=== PATIENT | female | born 1985 | race African-American/Black ===

== ENCOUNTER 2016-05-25 10:17 | Emergency (ER) | payer SELFPAY ==
[~2016-05-25] VITALS: Ht 149.9 cm; Wt 60.0 kg
[2016-05-25 10:20] VITALS: BP 142/66; PULSE 75; RESP 16; TEMP 98; O2SAT 98
--- NOTE | 2016-05-25 10:27 | PD ---
HPI . think sand got into her eyes Chief Complaint: Eye Problems/Injury Time Seen by Provider: 10:27 Travel History International Travel<30 days: No Contact w/Intl Traveler<30days: No Traveled to known affect area: No History of Present Illness HPI 31-year-old female with history of anemia here with complaints of bilateral eye pain. Patient says that she went to the beach yesterday and thinks sand may have gotten into her eyes. She said this morning she woke up and there was a slight discharge over her eyes she feels as though there is still sand remaining inside. She denies any visual changes. She denies photophobia. She has no other complaints. PFSH Past Medical History Anemia: Yes ?: Not Social History Alcohol Use: No Tobacco Use: No Substance Use: No Allergies-Medications (Allergen,Severity, Reaction): Coded Allergies: No Known Allergies (Unverified , 05/25/16) Reported Meds & Prescriptions Reported Meds & Active Scripts Active Sulfacetamide Opth Drops 10 % Soln 1 Drop EACH EYE QID 5 Days Review of Systems General / Constitutional: No: Fever Eyes: Positive: Redness, Foreign Body Sensation, Pain, Tearing, No: Visual changes HENT: No: Headaches Cardiovascular: No: Chest Pain or Discomfort Respiratory: No: Shortness of Breath Gastrointestinal: No: Abdominal Pain Genitourinary: No: Dysuria Musculoskeletal: No: Pain Skin: No Rash Neurologic: No: Weakness Psychiatric: No: Depression Endocrine: No: Polydipsia Hematologic/Lymphatic: No: Easy Bruising Physical Exam Narrative GENERAL: AAO x 3, no acute distress, Well-nourished, well-developed patient. SKIN: Warm and dry. No visible rashes or bruising. HEAD: Normocephalic and atraumatic. EYES: No scleral icterus. No injection or drainage. EOM intact, PERRLA, no visible foreign body on examination. After staining there is one small corneal abrasion on the right eye and a slightly larger one on the left eye, no purulent discharge visible ENT: No nasal drainage noted. Airway patent. NECK: Supple, trachea midline. No JVD. No lymphadenopathy CARDIOVASCULAR: Regular rate and rhythm without murmurs, gallops, or rubs. RESPIRATORY: Breath sounds equal bilaterally. No accessory muscle use. No rhonchi or rales. GASTROINTESTINAL: Abdomen soft, non-tender, nondistended. EXTREMITIES: No cyanosis or edema. BACK: Nontender without obvious deformity. No CVA tenderness. PSYCH: AAO x 3, normal affect. Data Data Last Documented VS Vital Signs Date Time Temp Pulse Resp B/P Pulse Ox O2 Delivery O2 Flow Rate FiO2 05/25/16 10:20 98.0 75 16 142/66 98 Orders Proparacaine 0.5% Opth Soln (Alcaine 0.5 (05/25/16 10:30) Eye Irrigation (05/25/16 10:43) MDM Medical Decision Making Medical Screen Exam Complete: Yes Emergency Medical Condition: Yes Medical Record Reviewed: Yes (no prior) Differential Diagnosis Corneal abrasion, bacterial conjunctivitis, viral conjunctivitis Narrative Course 31-year-old female with history of anemia here with complaints of bilateral eye pain. Patient says that she went to the beach yesterday and thinks sand may have gotten into her eyes. She said this morning she woke up and there was a slight discharge over her eyes she feels as though there is still sand remaining inside. She denies any visual changes. She denies photophobia. She has no other complaints. Patient seen and examined. After staining procedure she has 2 corneal abrasions. Eyes were flushed with Juvenal lens. Antibiotic eyedrops prescribed. Advise follow-up with outpatient pick pack worker in [place]. Patient verbalized understanding of instructions, questions were answered, and thanked me for their care. I advised them if their condition worsens, please return to the nearest emergency room for further care. Procedures Procedure Narrative Fluorescein eye staining procedure: proparacaine drops instilled into the b/l eyes Local anesthesia was accomplished. the eye was inspected for any type of obvious foreign body, eye lids were both everted and no FB seen fluorescein stain was applied to look for corneal abrasion there was a small corneal abrasion to the right eye and a slightly larger one on the left eye Juvenal lens used to flush both eyes Diagnosis Primary Impression: Corneal abrasion of both eyes Qualified Code: S05.01XA - Corneal abrasion of both eyes, initial encounter Referrals: [facility] Patient Instructions: General Instructions Additional Instructions: Please return to emergency department if your symptoms return or worsen. Follow up with your primary care provider. Take medications as prescribed. Refrain from rubbing your eyes. Please see an pick pack worker when you return home to [place]. Med/Other Pt SpecificInfo: Prescription(s) given Scripts Sulfacetamide Opth Drops 10 % Soln1 Drop EACH EYE QID 5 Days Ref 0 Prov:Piter Bermudez MD 05/25/16 Disposition: 01 DISCHARGE HOME Condition: Stable Stephany Boo May 25, 2016 10:27
[2016-05-25] MEDS ORDERED: PROPARACAINE HCL 0.5% OPHT SOLN 15 ML BTL EACH EYE ONE (10:30)
[2016-05-25] MEDS ORDERED: SULF10SO3 EACH EYE (10:40)
== END 2016-05-25 11:37 | disposition home or self-care (01) ==
LOC: NEPD 10:17
DX: S05.01XA Injury of conjunctiva and corneal abrasion without foreign body, right eye, initial encounter (principal); T15.02XA Foreign body in cornea, left eye, initial encounter; T15.01XA Foreign body in cornea, right eye, initial encounter
CPT/HCPCS: 99283